=== PATIENT | female | born 1955 ===

== ENCOUNTER 2016-10-20 13:54 | Emergency (ER) | payer SELFPAY ==
--- NOTE | 2016-10-20 15:50 | ERNOTE ---
Back Pain ER HPI Date of Service: 10/20/16 Presenting Symptoms: other - back pain Time Seen by Provider: 10/20/16 15:26 Source: patient Exam Limitations: no limitations Allergies/Adverse Reactions: Allergies No Known Allergies Allergy (Unverified 10/20/16 14:10) Home Medications: HOME MEDICATIONS Diazepam [Valium] 2 mg PO TID PRN #20 tablet 10/20/16 [Last Taken Unknown] Ibuprofen [Motrin] 200 mg PO PRN PRN 10/20/16 [Last Taken Unknown] Narrative: Patient presents to the ED for back pain. She relates she has a long history of back pain. She normally takes Ibuprofen for this but in the past has had flare ups and needed muscle relaxants. Valuim has worded the best. She relates increased pain over the last week. She gerts radicular pain down right leg to lateral ankole ans tome numbness in the toes but this is not acute. She was doing some lifting yesterday and this all worsened. Worse with movement. No acute focal N/T/W. No loss of bowel or bladder control. No vomiting. No cauda-equina syndrome symptoms. Timing: Reports: constant Quality/Severity: Reports: aching Location of pain: Reports: lower back Activities at Onset: Reports: other - lifting Possible Precipitating Factor: Reports: lifting Modifying Factors - (Improves): Reports: other - reset Modifying Factors - (Worsens): Reports: other - movement Associated Symptoms: Denies: fever/chills, constipation/incontinence, nausea/ vomiting, problems urinating, numbess/weakness in legs Review of Systems - Review of Systems Constitutional: Absent: fever Respiratory: Absent: shortness of breath Cardiology: Absent: chest pain Gastrointestinal/Abdominal: Absent: vomiting Neurological: Absent: weakness Physical Exam - Physical Exam General Appearance: Present: alert, no apparent distress Eye Exam: Normal inspection: bilateral Ears, Nose, Throat: Present: normal ENT inspection Neck: Present: normal inspection Respiratory: Present: no respiratory distress Cardiovascular/Chest: Present: regular rate, rhythm, normal peripheral pulses Gastrointestinal/Abdominal: Present: normal bowel sounds, soft, other - Minimal right low lateral abdominal tendenress. She states that happens with her back pain. Back Exam: Present: other - Tenderness right low back. Muscular tendenress completely reproduces her Sx. . Absent: vertebral tenderness Extremity Exam: Present: other - No DVT findings. Neurological Exam: Present: alert, other - Full LE strength and sensation. No motor or sensory deficits. No evidence of cauda-equina syndrome. No focal neuro deficits. Skin Exam: Absent: skin rash ED Progress - Vital Signs Patient's Vital Signs:: I have reviewed the patient's vital signs. Vital Signs: Vital Signs 10/20/16 14:06 Temperature 37.1 C Pulse Rate 70 Respiratory 14 Rate Blood Pressure 144/86 O2 Sat by Pulse 97 Oximetry - Progress/Reassessment Chief Complaint: Back Pain Progress Note-Subjective: 10/20/16 15:46 I offered the patient a full w/u with imaging and UA/Labs. She declines this and just wishes to have a muscle relaxant which has helped with this in the past. She understands risks and benefits. Nothing to suggest cauda-equina syndrome or infectious process at this time. I discussed warning signs and reasons to return as well as the need for close f/ u. Departure Clinical Impression: Back pain - Departure Disposition: Home self-care Condition: Stable Instructions: Back Pain, Adult Additional Instructions: Rest. Do driving with medication. Follow-up with doctor as directed. Return here if you change your mind about having the additional testing I have offered , develop fever, numbness, tingling, weakness, trouble with bowel or bladder control or if your condition worsens or changes in any way. Prescriptions: Diazepam [Valium] 2 mg PO TID PRN #20 tablet PRN Reason: Muscle Spasm
[2016-10-20 15:51] VITALS: BP 184/82
== END 2016-10-20 15:55 | disposition home or self-care (01) ==
LOC: ER 13:54
DX: M54.9 Dorsalgia, unspecified (principal)

== ENCOUNTER 2016-10-31 11:28 | Emergency (ER) | payer MEDICAID ==
[2016-10-31] MEDS ORDERED: ASPIRIN 81 MG TAB.CHEW PO ONE (12:01)
[2016-10-31] MEDS ORDERED: ASPIRIN 81 MG TAB.CHEW ONE (12:06)
[2016-10-31 12:31] LABS: Hematocrit 39.5 % (37.0-47.0); Hemoglobin 13.3 gm/dL (12.5-16.0); Mean Corpuscular Hemoglobin 30.3 pg (27-31); Mean Corpuscular Hgb Conc 33.7 g/dl (32-36); Mean Platelet Volume 9.5 fl (6.0-9.5); Neutrophil % 55.2 % (42-75.0); Platelet Count 321 K/mm3 (150-450); Red Blood Count 4.39 M/mm3 (4.2-5.4); Red Cell Distribution Width 12.4 % (11.5-14.0); White Blood Count 7.3 K/mm3 (4.0-10.5)
[2016-10-31 12:38] LABS: Prothrombin Time (Patient) 9.3 Seconds (9.4-11.4)
[2016-10-31 12:41] LABS: INR 0.89 INR (0.90-1.10); Partial Thrombolplastin Time 26.4 Seconds (24-32)
[2016-10-31 12:49] LABS: ALT 21 U/L (19-67); AST 17 U/L (0-48); Albumin * 3.7 gm/dl (3.4-5.0); Alkaline Phosphatase * 111 U/L (50-170); Anion Gap 12.6 mmol/L (6.8-13.8); BUN/Creatinine Ratio 14.6 (9.0-21.6); Bilirubin, Total 0.2 mg/dL (0.0-1.1); Blood Urea Nitrogen 18 mg/dL (3-23); Ca. Corrected For Albumin 9.6 mg/dL (8.4-10.2); Calcium * 9.7 mg/dL (7.9-10.9); Carbon Dioxide 28.4 mmol/L (24-32.6); Chloride 107 mmol/L (97-106); Glucose * 100 mg/dL (70-110); Sodium 144 mmol/L (132-142); Total Protein 7.3 gm/dL (6.2-8.2); Troponin I Less than 0.017 ng/ml (0.00-0.10)
[2016-10-31] MEDS ORDERED: ENOXAPARIN SODIUM 80 MG/0.8 ML DISP.SYRIN SC ONE ×2 (15:54→15:55)
[2016-10-31 17:05] VITALS: BP 158/76
--- NOTE | 2016-10-31 17:13 | ERNOTE ---
Chest Pain/Cardiac HPI Date of Service: 10/31/16 Chief Complaint: Chest Pain Time Seen by Provider: 10/31/16 13:15 Source: patient Exam Limitations: no limitations Immunizations: IMMUNIZATION HX Immunizations Up to Date Yes History of Influenza Vaccine No Hx Pneumococcal Vaccination No Allergies/Adverse Reactions: Allergies iodine Allergy (Unknown, Verified 10/31/16 15:19) unknown allergy from past. Patient reports rash from topical iodine. Home Medications: HOME MEDICATIONS Diazepam [Valium] 2 mg PO TID PRN #20 tablet 10/20/16 [Last Taken Unknown] Ibuprofen [Motrin] 200 mg PO PRN PRN 10/20/16 [Last Taken Unknown] Enoxaparin Sodium [Lovenox] 80 mg SC Q12H #14 disp.syrin 10/31/16 [Last Taken Unknown] Narrative: Patient presents to the ED for left leg pain and chest pain. SHe has a history of PE remotely and tells me she is concerned dhe has another PE. She has been having left calf cramping for a few days. This am at 6 am she noticed left upper chest pain that has been constant ever since. Aching pain. Feels like can't take a deep breath. No fever. No trauma. Has not seen anyone else for this. Constant pain. No abdominal pain or other Sx assocoated with this. Timing: constant Severity/Quality: moderate Location: other - left upper chest Chest Pain Radiation: no radiation Activities at Onset: none Modifying Factors - Improves: Present: nothing Modifying Factors - Worsens: Present: breathing Associated Symptoms: Absent: syncope, cough, shortness of breath, fever/chills, palpitations, vomiting, abdominal pain, weakness Prior Treatment: Reports: other - recent eval for back pain Review of Systems - Review of Systems Constitutional: Absent: fever Respiratory: Present: See HPI Cardiology: Present: See HPI Gastrointestinal/Abdominal: Absent: abdominal pain Genitourinary: Present: no symptoms reported Skin: Absent: rash All Other Systems: All systems neg except as marked - Patient's Past Medical History Patient History - Medical: No pertinent hx Patient History - Cardiac/Respiratory: Hypertension, Pulmonary Embolism Patient History - Cancer: No Hx of Cancer Patient History - Surgical Procedures: Back Surgery, Hysterectomy Patient History - Other: None LMP (females 10-50): Menopausal - Social History Living Situations: home Abuse History: No History of abuse Psych History: No pertinent hx Smoking Status: Former smoker Alcohol Use: none Drug Use: none - Immunizations Immunizations Up to Date: Yes Hx Pneumococcal Vaccination: No History of Influenza Vaccine: No Physical Exam - Physical Exam General Appearance: Present: alert, no apparent distress Eye Exam: Normal inspection: bilateral, PERRL: bilateral Ears, Nose, Throat: Present: normal ENT inspection Neck: Present: normal inspection Respiratory: Present: no respiratory distress, normal breath sounds, no accessory muscle use, lungs clear Cardiovascular/Chest: Present: regular rate, rhythm, normal peripheral pulses Gastrointestinal/Abdominal: Present: normal bowel sounds, nontender, soft, no organomegaly Back Exam: Present: normal range of motion Extremity Exam: Present: normal inspection, other - mild left calf tenderness. Warm, well perfused. No clinical findings of DVT, compartment syndrome or infection. Neurological Exam: Present: alert, normal mood/affect, no motor/sensory deficits Skin Exam: Absent: skin rash ED Progress - Date and Time Seen: Date and Time: 10/31/16 17:03 - Results and Orders Patient's Lab Results:: I have reviewed the patient's lab results. - Vital Signs Patient's Vital Signs:: I have reviewed the patient's vital signs. Vital Signs: Vital Signs 10/31/16 10/31/16 10/31/16 11:29 11:30 11:46 Temperature 37.7 C H Pulse Rate 85 82 Respiratory 10 L 17 Rate Blood Pressure 144/86 149/82 192/95 O2 Sat by Pulse 96 94 Oximetry 10/31/16 10/31/16 14:20 15:37 Temperature 37.4 C Pulse Rate 69 71 Respiratory 17 17 Rate Blood Pressure 187/85 172/89 O2 Sat by Pulse 98 98 Oximetry - EKG EKG: NSR EKG read: Interp. by me EKG Comments: NSR rate 72. Non-specific ST/T wave changes, no STEMI. - X-Ray X-Ray #1 X-Ray: chest Interpretation: Reviewed by me X-ray Comments: NAPP. Official radiology report reviewed. - CT/Ultrasound CT/Ultrasound Narrative: US, no DVT. Official report reviewed. - Progress/Reassessment Chief Complaint: Chest Pain Progress Note-Subjective: 10/31/16 17:09 No evidence of ACS, neg trop X 2 > 10 hours after onset of atypical, constant pain. She cannot have Iodine and would not consent to IV contrast here. No V/ Q availability here on weekends or nearby hospitals. D/W Hospitalist and d/t bed shortage inpatient obs was not felt to be appropriate. Given this with Hx PE will treat with Lovenox (risk<benefit). CLinically I doubt PE in this setting and nothing would suggest aortic dissection. V/Q scheduled Wednesday and will f/u with PCP Wednesday/Wednesday. She is comfortable with this plan. No distress, stable. Manual BP done and reviewed prior to d/c. I discussed risks of treatment and benefits. She understands and agrees. Departure - Departure Clinical Impression: Atypical chest pain Disposition: Home self-care Condition: Stable Additional Instructions: You are to take the blood thinning medication as directed. You have a V/Q scan scheduled for Wednesday here. You need to see your doctor Wednesday or Wednesday after the V/Q to discuss further treatment. I have given you a week of blood thinner for now. With blood thinners there is a risk of bleeding. Please return here if your develop any blood in stools or other bleeding. Return for trouble breathing or if your condition worsens or changes in any way. Prescriptions: Enoxaparin Sodium [Lovenox] 80 mg SC Q12H #14 disp.syrin
== END 2016-10-31 17:10 | disposition home or self-care (01) ==
LOC: ER 11:28
DX: R07.89 Other chest pain (principal); Z87.891 Personal history of nicotine dependence; Z86.711 Personal history of pulmonary embolism